=== PATIENT | female | born 1990 | race Caucasian/White ===

== ENCOUNTER 2020-06-14 14:22 | Emergency (ER) | payer MEDICAID ==
[~2020-06-14] VITALS: Ht 157.5 cm; Wt 61.6 kg
[2020-06-14] MEDS ORDERED: ACETAMINOPHEN 325MG TABLET PO PRN (15:45)
[2020-06-14 16:49] LABS: CLARITY URINE CLEAR (CLEAR); COLOR URINE YELLOW (YELLOW); KETONES URINE TRACE (NEGATIVE); LEUKOCYTE ESTERASE URINE NEGATIVE (NEGATIVE); NITRITE URINE NEGATIVE (NEGATIVE); OCCULT BLOOD URINE NEGATIVE (NEGATIVE); PH URINE 5.5 (4.5-8.0); PROTEIN URINE NEGATIVE (NEGATIVE); SPECIFIC GRAVITY URINE 1.012 (1.005-1.030); UROBILINOGEN URINE 0.2 E.U./dL (0.2-1.0)
[2020-06-14 17:03] LABS: CHLORIDE 105 mEq/L (98-107)
[2020-06-14 17:07] LABS: BASOPHILS % 0.3 % (0.0-2.0); EOSINOPHILS % 0.1 % (0.0-5.0); HEMATOCRIT. 38.2 % (36.0-48.0); HEMOGLOBIN. 13.4 g/dL (12.0-16.0); LYMPHOCYTES % 26.7 % (20.0-50.0); MEAN CORPUSCULAR HEMOGLOBIN 32.4 pg (28.0-32.0); MEAN CORPUSCULAR VOLUME 92.4 fL (81.0-99.0); MEAN PLATELET VOLUME 9.5 fl (7.4-10.4); MONOCYTES % 9.7 % (2.0-8.0); NEUTROPHILS % 63.2 % (40.0-76.0); PLATELET 222 x1000/uL (130-400); RED BLOOD CELL COUNT 4.14 mill/uL (4.2-5.4); RED CELL DISTRIBUTION WIDTH 12.8 % (11.6-14.6)
[2020-06-14 17:25] VITALS: BP 117/68
[2020-06-14 17:26] LABS: B-HCG QUANTITATIVE 1167 mIU/mL (<3)
== END 2020-06-14 18:00 | disposition home or self-care (01) ==
LOC: ER 14:22
DX: O20.0 Threatened abortion (principal); Z3A.01 Less than 8 weeks gestation of pregnancy; Z98.890 Other specified postprocedural states
CPT/HCPCS: 36415; 76801; 80053; 81003; 81025; 84702; 85025; 93005; 99285

== ENCOUNTER 2020-06-21 12:55 | Emergency (ER) | payer MEDICAID ==
[~2020-06-21] VITALS: Ht 157.5 cm; Wt 62.5 kg
[2020-06-21] MEDS ORDERED: ACETAMINOPHEN 325MG TABLET PO ONE (15:15)
[2020-06-21 15:50] LABS: CLARITY URINE CLEAR (CLEAR); COLOR URINE YELLOW (YELLOW); KETONES URINE TRACE (NEGATIVE); LEUKOCYTE ESTERASE URINE NEGATIVE (NEGATIVE); NITRITE URINE NEGATIVE (NEGATIVE); OCCULT BLOOD URINE NEGATIVE (NEGATIVE); PH URINE 5.5 (4.5-8.0); PROTEIN URINE NEGATIVE (NEGATIVE); SPECIFIC GRAVITY URINE 1.026 (1.005-1.030); UROBILINOGEN URINE 0.2 E.U./dL (0.2-1.0)
[2020-06-21 16:23] LABS: BASOPHILS % 0.3 % (0.0-2.0); CHLORIDE 104 mEq/L (98-107); EOSINOPHILS % 0.3 % (0.0-5.0); HEMATOCRIT. 38.8 % (36.0-48.0); HEMOGLOBIN. 13.5 g/dL (12.0-16.0); MEAN CORPUSCULAR HEMOGLOBIN 31.9 pg (28.0-32.0); MEAN CORPUSCULAR VOLUME 91.7 fL (81.0-99.0); MEAN PLATELET VOLUME 9.8 fl (7.4-10.4); MONOCYTES % 10.1 % (2.0-8.0); NEUTROPHILS % 69.3 % (40.0-76.0); PLATELET 250 x1000/uL (130-400); RED BLOOD CELL COUNT 4.23 mill/uL (4.2-5.4); RED CELL DISTRIBUTION WIDTH 13.2 % (11.6-14.6)
[2020-06-21 16:25] LABS: INR 1.1; PROTHROMBIN TIME 11.5 sec (9.6-11.0)
[2020-06-21 16:42] LABS: HCG SCREEN POSITIVE
[2020-06-21 16:50] LABS: B-HCG QUANTITATIVE 14009 mIU/mL (<3)
[2020-06-21 17:34] VITALS: BP 112/62
== END 2020-06-21 17:37 | disposition home or self-care (01) ==
LOC: ER 12:55
DX: O20.0 Threatened abortion (principal); Z98.890 Other specified postprocedural states; Z3A.01 Less than 8 weeks gestation of pregnancy
CPT/HCPCS: 36415; 76801; 80053; 81003; 81025; 84702; 84703; 85025; 86850; 86900; 99284

== ENCOUNTER 2020-07-23 11:55 | Emergency (ER) | payer MEDICAID ==
[~2020-07-23] VITALS: Ht 157.5 cm; Wt 64.0 kg
[2020-07-23] MEDS ORDERED: ONDANSETRON HCL 4MG/2ML INJ IV STA (12:10)
[2020-07-23] MEDS ORDERED: FAMOTIDINE 20MG/2ML VIAL IV ONE (12:15)
[2020-07-23] MEDS ORDERED: SODIUM CHLORIDE 0.9% 1,000 ML IV ONE (12:15)
[2020-07-23] MEDS ORDERED: KETOROLAC 15MG/ML VIAL IV ONE (12:30)
[2020-07-23 12:49] LABS: BASOPHILS % 0.1 % (0.0-2.0); EOSINOPHILS % 0.2 % (0.0-5.0); HEMATOCRIT. 35.9 % (36.0-48.0); HEMOGLOBIN. 12.5 g/dL (12.0-16.0); LYMPHOCYTES % 8.8 % (20.0-50.0); MEAN CORPUSCULAR HEMOGLOBIN 32.1 pg (28.0-32.0); MEAN CORPUSCULAR VOLUME 91.9 fL (81.0-99.0); MEAN PLATELET VOLUME 9.4 fl (7.4-10.4); MONOCYTES % 6.5 % (2.0-8.0); NEUTROPHILS % 84.4 % (40.0-76.0); PLATELET 239 x1000/uL (130-400); RED BLOOD CELL COUNT 3.91 mill/uL (4.2-5.4); RED CELL DISTRIBUTION WIDTH 13.2 % (11.6-14.6)
[2020-07-23 12:56] LABS: CHLORIDE 105 mEq/L (98-107)
[2020-07-23 13:11] LABS: COLOR URINE YELLOW (YELLOW); KETONES URINE NEGATIVE (NEGATIVE); LEUKOCYTE ESTERASE URINE NEGATIVE (NEGATIVE); NITRITE URINE NEGATIVE (NEGATIVE); OCCULT BLOOD URINE NEGATIVE (NEGATIVE); PROTEIN URINE NEGATIVE (NEGATIVE); SPECIFIC GRAVITY URINE 1.025 (1.005-1.030); UROBILINOGEN URINE 0.2 E.U./dL (0.2-1.0)
[2020-07-23 13:12] LABS: CLARITY URINE SL HAZY (CLEAR)
[2020-07-23] MEDS ORDERED: ACETAMINOPHEN 325MG TABLET PO ONE (13:15)
[2020-07-23 15:03] VITALS: BP 110/59
== END 2020-07-23 15:15 | disposition home or self-care (01) ==
LOC: ER 11:55
DX: O26.891 Other specified pregnancy related conditions, first trimester (principal); R10.13 Epigastric pain; O21.9 Vomiting of pregnancy, unspecified; R19.7 Diarrhea, unspecified; Z98.890 Other specified postprocedural states; Z3A.10 10 weeks gestation of pregnancy
CPT/HCPCS: 36415; 76700; 76801; 76817; 80053; 81003; 81025; 83690; 84702; 85025; 93005; 96361; 96374; 96375; 99285; J2405; J3490; J7030

== ENCOUNTER 2020-11-25 21:46 | Observation (INO) | payer MEDICAID ==
[~2020-11-25] VITALS: Ht 157.5 cm; Wt 72.6 kg
[2020-11-25] MEDS ORDERED: LACTATED RINGERS 1,000 ML IV STA (22:38)
[2020-11-25] MEDS ORDERED: TERBUTALINE SULFATE 1MG/ML VIAL SUBCUT NR (22:38)
[2020-11-26] MEDS ORDERED: PREN-176 MT (00:26)
== END 2020-11-26 00:40 | disposition home or self-care (01) ==
LOC: 8 EST LDRP 21:46
PROVIDERS: ADMIT Obstetrics & Gynecology; ATTEND Obstetrics & Gynecology
DX: O26.893 Other specified pregnancy related conditions, third trimester (principal); R10.30 Lower abdominal pain, unspecified; Z3A.28 28 weeks gestation of pregnancy
CPT/HCPCS: 59025; 82731; G0378; J3105; 99281

== ENCOUNTER 2020-12-07 01:34 | Emergency (ER) | payer MEDICAID, OTHER ==
[~2020-12-07] VITALS: Ht 157.5 cm; Wt 74.0 kg
[~2020-12-07 01:34] MED LIST: CALC-26 PO; FERR325T6 PO; PREN-176 MT
[2020-12-07] MEDS ORDERED: ACETAMINOPHEN 325MG TABLET PO ONE (03:00)
[2020-12-07 04:30] VITALS: BP 110/60
== END 2020-12-07 04:55 | disposition home or self-care (01) ==
LOC: ER 01:34
DX: O26.893 Other specified pregnancy related conditions, third trimester (principal); Z3A.30 30 weeks gestation of pregnancy; S80.01XA Contusion of right knee, initial encounter; S39.012A Strain of muscle, fascia and tendon of lower back, initial encounter; W01.0XXA Fall on same level from slipping, tripping and stumbling without subsequent striking against object, initial encounter; Y93.9 Activity, unspecified; Y92.9 Unspecified place or not applicable
CPT/HCPCS: 99282

== ENCOUNTER 2021-01-05 08:34 | Observation (INO) | payer MEDICAID ==
[~2021-01-05] VITALS: Ht 157.5 cm; Wt 76.2 kg
[2021-01-05] MEDS ORDERED: TERBUTALINE SULFATE 1MG/ML VIAL SUBCUT PRN (09:30)
[2021-01-05] MEDS ORDERED: LACTATED RINGERS 1,000 ML IV SCH (09:30)
[2021-01-05 10:08] LABS: BASOPHILS % 0.2 % (0.0-2.0); EOSINOPHILS % 0.2 % (0.0-5.0); HEMOGLOBIN. 12.3 g/dL (12.0-16.0); LYMPHOCYTES % 10.1 % (20.0-50.0); MEAN CORPUSCULAR HEMOGLOBIN 31.3 pg (28.0-32.0); MEAN CORPUSCULAR VOLUME 91.8 fL (81.0-99.0); MONOCYTES % 7.2 % (2.0-8.0); NEUTROPHILS % 82.3 % (40.0-76.0); PLATELET 237 x1000/uL (130-400); RED BLOOD CELL COUNT 3.92 mill/uL (4.2-5.4); RED CELL DISTRIBUTION WIDTH 13.1 % (11.6-14.6)
[2021-01-05 10:16] LABS: CHLORIDE 106 mEq/L (98-107)
[2021-01-05 11:34] LABS: CLARITY URINE CLEAR (CLEAR); COLOR URINE YELLOW (YELLOW); KETONES URINE NEGATIVE (NEGATIVE); LEUKOCYTE ESTERASE URINE NEGATIVE (NEGATIVE); NITRITE URINE NEGATIVE (NEGATIVE); OCCULT BLOOD URINE NEGATIVE (NEGATIVE); PH URINE 8.5 (4.5-8.0); PROTEIN URINE NEGATIVE (NEGATIVE); SPECIFIC GRAVITY URINE 1.019 (1.005-1.030); UROBILINOGEN URINE 0.2 E.U./dL (0.2-1.0)
== END 2021-01-05 12:00 | disposition home or self-care (01) ==
LOC: 8 EST LDRP 08:34
PROVIDERS: ADMIT Obstetrics & Gynecology; ATTEND Obstetrics & Gynecology
DX: O21.2 Late vomiting of pregnancy (principal); O26.893 Other specified pregnancy related conditions, third trimester; R51.9 Headache, unspecified; Z3A.34 34 weeks gestation of pregnancy
CPT/HCPCS: 36415; 59025; 76805; 76818; 80053; 81003; 85025; 87426; 96360; 96361; 96372; G0378; J3105; 99281

== ENCOUNTER 2022-08-04 16:20 | Observation (INO) | payer MEDICAID ==
[~2022-08-04] VITALS: Ht 157.5 cm; Wt 80.3 kg
[~2022-08-04 16:20] MED LIST changes: -CALC-26 PO; +CEPH500T MT; -PREN-176 MT
[2022-08-04] MEDS ORDERED: LACTATED RINGERS 1,000 ML IV ONE (18:15)
[2022-08-04] MEDS ORDERED: LACTATED RINGERS 1,000 ML IV SCH (19:00)
[2022-08-04] MEDS ORDERED: CEFAZOLIN 2,000 MG in DEXT 5% WATER 100 ML IV NR (19:00)
[2022-08-04 19:45] LABS: CLARITY URINE CLEAR (CLEAR); COLOR URINE YELLOW (YELLOW); KETONES URINE 2+ (NEGATIVE); LEUKOCYTE ESTERASE URINE NEGATIVE (NEGATIVE); NITRITE URINE NEGATIVE (NEGATIVE); OCCULT BLOOD URINE NEGATIVE (NEGATIVE); PH URINE 5.5 (4.5-8.0); PROTEIN URINE TRACE (NEGATIVE); UROBILINOGEN URINE 0.2 E.U./dL (0.2-1.0)
[2022-08-04] MEDS ORDERED: TERBUTALINE SULFATE 1MG/ML VIAL SUBCUT NR (20:00)
== END 2022-08-04 22:40 | disposition home or self-care (01) ==
LOC: 8 EST A/PP 16:20
PROVIDERS: ADMIT Obstetrics & Gynecology; ATTEND Obstetrics & Gynecology
DX: O26.893 Other specified pregnancy related conditions, third trimester (principal); R10.30 Lower abdominal pain, unspecified; O62.9 Abnormality of forces of labor, unspecified; Z3A.33 33 weeks gestation of pregnancy; Z98.891 History of uterine scar from previous surgery
CPT/HCPCS: 59025; 81003; 96361; 96365; 96372; G0378; J0690; J3105; J7060; 96360; 99281

== ENCOUNTER 2022-08-19 14:40 | Observation (INO) | payer MEDICAID ==
[~2022-08-19] VITALS: Ht 157.5 cm; Wt 82.6 kg
[2022-08-19] MEDS ORDERED: LACTATED RINGERS 1,000 ML IV SCH (15:45)
[2022-08-19 16:40] LABS: CLARITY URINE CLEAR (CLEAR); COLOR URINE YELLOW (YELLOW); KETONES URINE NEGATIVE (NEGATIVE); LEUKOCYTE ESTERASE URINE NEGATIVE (NEGATIVE); NITRITE URINE NEGATIVE (NEGATIVE); OCCULT BLOOD URINE NEGATIVE (NEGATIVE); PH URINE 5.5 (4.5-8.0); PROTEIN URINE TRACE (NEGATIVE); SPECIFIC GRAVITY URINE 1.023 (1.005-1.030); UROBILINOGEN URINE 0.2 E.U./dL (0.2-1.0)
== END 2022-08-19 18:00 | disposition home or self-care (01) ==
LOC: L&D 14:40 → 8 EST LDRP 15:18
PROVIDERS: ADMIT Specialist; ATTEND Specialist
DX: O26.893 Other specified pregnancy related conditions, third trimester (principal); R10.30 Lower abdominal pain, unspecified; M54.50 Low back pain, unspecified; Z3A.35 35 weeks gestation of pregnancy
CPT/HCPCS: 59025; 81003; 96360; 96361; G0378; 99281

== ENCOUNTER 2022-08-21 21:17 | Observation (INO) | payer MEDICAID ==
[~2022-08-21] VITALS: Ht 157.5 cm; Wt 82.6 kg
[2022-08-21] MEDS: LACTATED RINGERS 1,000 ML IV SCH ×2 (22:38→23:43)
[2022-08-21 22:51] LABS: CLARITY URINE CLEAR (CLEAR); COLOR URINE YELLOW (YELLOW); KETONES URINE TRACE (NEGATIVE); LEUKOCYTE ESTERASE URINE NEGATIVE (NEGATIVE); NITRITE URINE NEGATIVE (NEGATIVE); OCCULT BLOOD URINE TRACE (NEGATIVE); PH URINE 5.5 (4.5-8.0); PROTEIN URINE 1+ (NEGATIVE); SPECIFIC GRAVITY URINE 1.039 (1.005-1.030)
== END 2022-08-22 00:37 | disposition home or self-care (01) ==
LOC: 8 EST LDRP 21:17
PROVIDERS: ADMIT Obstetrics & Gynecology; ATTEND Obstetrics & Gynecology
DX: O26.893 Other specified pregnancy related conditions, third trimester (principal); R10.9 Unspecified abdominal pain; O62.9 Abnormality of forces of labor, unspecified; Z3A.36 36 weeks gestation of pregnancy; Z98.891 History of uterine scar from previous surgery
CPT/HCPCS: 59025; 81003; 96360; 96361; G0378; 99281

== ENCOUNTER 2022-09-13 15:07 | Emergency (ER) | payer MEDICAID, OTHER ==
[~2022-09-13] VITALS: Ht 162.6 cm; Wt 75.0 kg
[2022-09-14 00:01] VITALS: BP 118/61
== END 2022-09-14 00:06 | disposition home or self-care (01) ==
LOC: ER 15:07
DX: Z48.01 Encounter for change or removal of surgical wound dressing (principal)
CPT/HCPCS: 99281